=== PATIENT | female | born 1990 | race Caucasian/White ===

== ENCOUNTER 2020-08-28 22:09 | Emergency (ER) | payer SELFPAY ==
[~2020-08-28] VITALS: Ht 162.6 cm; Wt 64.4 kg
[2020-08-28 22:23] VITALS: BP_SYST 146
[2020-08-28 23:26] VITALS: BP_SYST 146
== END 2020-08-28 23:26 | disposition home or self-care (01) ==
LOC: SED 22:09
DX: Z02.89 Encounter for other administrative examinations (principal)
CPT/HCPCS: 99283